=== PATIENT | male | born 1950 | race Caucasian/White ===

== ENCOUNTER 2017-06-07 10:45 | Outpatient (CLI) | payer MEDICARE, OTHER | END 2017-06-07 23:59 | disposition home or self-care (01) | LOC: RAD 10:45 | PROVIDERS: ATTEND Family Medicine | DX: M19.042 Primary osteoarthritis, left hand (principal); M25.442 Effusion, left hand; R60.0 Localized edema; Z87.891 Personal history of nicotine dependence | CPT/HCPCS: 73130-TC ==

== ENCOUNTER 2018-02-17 10:03 | Outpatient (CLI) | payer MEDICARE, OTHER ==
[2018-02-17 10:46] LABS: CREATININE 0.9 mg/dL (0.6-1.3)
== END 2018-02-17 23:59 | disposition home or self-care (01) ==
LOC: LAB 10:03
PROVIDERS: ATTEND Family Medicine
DX: R10.9 Unspecified abdominal pain (principal)
CPT/HCPCS: 36415; 82565-TC; 84520-TC

== ENCOUNTER 2018-02-18 09:13 | Outpatient (CLI) | payer MEDICARE, OTHER | END 2018-02-18 23:59 | disposition home or self-care (01) | LOC: CT 09:13 | PROVIDERS: ATTEND Family Medicine | DX: K40.90 Unilateral inguinal hernia, without obstruction or gangrene, not specified as recurrent (principal); N28.1 Cyst of kidney, acquired; M47.9 Spondylosis, unspecified | CPT/HCPCS: 74178 ==

== ENCOUNTER 2018-05-15 07:47 | Outpatient (CLI) | payer MEDICARE, OTHER | END 2018-05-15 23:59 | disposition home or self-care (01) | LOC: NM 07:47 | PROVIDERS: ATTEND Internal Medicine Cardiovascular Disease | DX: I10 Essential (primary) hypertension (principal); E11.9 Type 2 diabetes mellitus without complications; I20.8 Other forms of angina pectoris | CPT/HCPCS: 78452; A9502 ==